=== PATIENT | female | born 1960 | race African-American/Black ===

== ENCOUNTER 2017-01-20 18:45 | Inpatient (IN) | payer MEDICARE, MEDICAID ==
[~2017-01-20] VITALS: Ht 157.5 cm; Wt 79.4 kg
[~2017-01-20 18:45] MED LIST: ALLO100T PO; CINA60TA PO; CITA20TA3 PO; CLO01T PO; CLON1TAB3 PO; DIPH25CA66 PO; DOCU-147 PO; GABA300C PO; INSUINJ37; METO5TAB56 PO; METOPROLOL PO; NIFE60TA59 PO; NOR10T PO; PHEN100C70 PO; PROM25TA5; Pantoprazole Sodium Sesquihydr PO; SEVE800T8; SIMV-13 PO; TRAZ100T2 PO
[2017-01-20 20:14] LABS: Basophils # (auto) 0 uL; Basophils % (auto) 0.1 % (0.0-2.0); CONDITION Y; Eosinophils # (auto) 0 uL; Eosinophils % (auto) 0.3 % (0.0-7.0); Hematocrit 40.8 % (36.0-46.0); Hemoglobin 13.7 g/dL (12.2-16.2); Lymphocytes # (auto) 0.8 uL; Lymphocytes % (auto) 9.2 % (10.0-50.0); Mean Corpuscular Hemoglobin 31.2 pg (28.0-32.0); Mean Corpuscular Hgb Conc. 33.7 g/dL (32.0-36.0); Mean Corpuscular Volume 92.7 fL (80.0-100.0); Mean Platelet Volume 8.1 fL (7.4-10.4); Monocytes # (auto) 0.6 uL; Monocytes % (auto) 6.1 % (0.0-12.0); Neutrophils # (auto) 7.7 uL; Neutrophils % (auto) 84.3 % (37.0-80.0); Platelet Count (auto) 356 10^3/uL (140-450); Red Cell Distribution Width 15.1 % (11.6-16.0); White Blood Cell 9.1 10^3/uL (4.4-10.8)
[2017-01-20] MEDS ORDERED: PROMETHAZINE HCL 25 MG/ML 1ML IV ONE (20:15)
[2017-01-20] MEDS ORDERED: MORPHINE SULF INJ 2 MG/ML SYRINGE 1ML IV ONE (20:15)
[2017-01-20 20:29] LABS: INR 1.04 (0.9-1.15); Partial Thromboplastin Time 26.9 sec (22.64-33.71); Prothrombin Time 11.3 sec (9.37-12.3)
[2017-01-20 20:44] LABS: Albumin 3.6 g/dL (3.4-5.0); Magnesium 2.4 mg/dL (1.6-2.6); Potassium 3.9 mmol/L (3.5-5.1)
[2017-01-20 20:45] LABS: Temperature: 21.8 C (20.0-25.0)
[2017-01-20 20:51] LABS: Bilirubin, Total 0.5 mg/dL (0.2-1.0)
[2017-01-20] MEDS ORDERED: NITROGLYCERIN 0.4 MG SL TAB SL PRN (21:30)
[2017-01-20] MEDS ORDERED: ATORVASTATIN 20 MG TAB PO SCH (22:00)
[2017-01-20] MEDS ORDERED: KETOROLAC TROMETH 30 MG/ML 1ML VIAL IM ONE (22:15)
[2017-01-20] MEDS ORDERED: LORazepam 0.5 MG TAB PO PRN (22:30)
[2017-01-20] MEDS ORDERED: NIFEdipine ER 30 MG TAB PO ONE (22:30)
[2017-01-20] MEDS ORDERED: ACETAMINOPHEN 500 MG TAB PO PRN (22:30)
[2017-01-20] MEDS: MORPHINE SULF INJ 2 MG/ML SYRINGE 1ML IV PRN (22:38)
[2017-01-20] MEDS ORDERED: DEXTROSE (50%) 50ML SYRG IV PRN (23:00)
[2017-01-20 23:35] VITALS: BP 183/95
[2017-01-20 23:43] VITALS: BP 183/95
[2017-01-21] MEDS ORDERED: NIFEdipine ER 30 MG TAB PO ONE (00:12)
[2017-01-21] MEDS: PROMETHAZINE HCL 25 MG/ML 1ML IV PRN ×4 (00:21→19:52)
[2017-01-21] MEDS: MORPHINE SULF INJ 2 MG/ML SYRINGE 1ML IV PRN ×3 (00:23→19:51)
[2017-01-21] MEDS ORDERED: PROMETHAZINE HCL 25 MG/ML 1ML IV ONE (03:00)
[2017-01-21] MEDS ORDERED: METOPROLOL TARTRATE 1MG/1ML-5ML VIAL IV ONE (04:45)
[2017-01-21 05:00] VITALS: BP 200/110
[2017-01-21 05:08] LABS: Basophils # (auto) 0 uL; Basophils % (auto) 0.6 % (0.0-2.0); CONDITION Y; Eosinophils # (auto) 0.2 uL; Eosinophils % (auto) 3.6 % (0.0-7.0); Hematocrit 36.7 % (36.0-46.0); Hemoglobin 12.4 g/dL (12.2-16.2); Lymphocytes # (auto) 1.4 uL; Lymphocytes % (auto) 20.2 % (10.0-50.0); Mean Corpuscular Hemoglobin 31.5 pg (28.0-32.0); Mean Corpuscular Hgb Conc. 33.7 g/dL (32.0-36.0); Mean Corpuscular Volume 93.3 fL (80.0-100.0); Mean Platelet Volume 8.2 fL (7.4-10.4); Monocytes # (auto) 0.5 uL; Monocytes % (auto) 7.2 % (0.0-12.0); Neutrophils # (auto) 4.6 uL; Neutrophils % (auto) 68.4 % (37.0-80.0); Platelet Count (auto) 326 10^3/uL (140-450); Red Cell Distribution Width 14.9 % (11.6-16.0); White Blood Cell 6.7 10^3/uL (4.4-10.8)
[2017-01-21 05:27] LABS: Calcium 8.4 mg/dL (8.5-10.1)
[2017-01-21 05:32] LABS: BUN/Creatinine Ratio 5.5
[2017-01-21] MEDS: InsuLIN REG 1unit/0.01ml Soln (100units/ml) SC SCH ×4 (06:37→21:39)
[2017-01-21] MEDS: ACCU-CHEK COMFORT CURVE STRIP VI SCH ×4 (06:37→21:39)
[2017-01-21] MEDS: SEVELAMER 800 MG TAB PO SCH ×3 (07:43→17:33)
[2017-01-21 09:00] VITALS: BP 192/120
[2017-01-21] MEDS: clonazePAM 0.5 MG TAB PO SCH ×2 (09:36→21:39)
[2017-01-21] MEDS: DOCUSATE SOD 100 MG CAP PO SCH ×2 (09:36→21:36)
[2017-01-21] MEDS: ASPirin 81 mg TAB PO SCH (09:36)
[2017-01-21] MEDS: cloNIDine HCL 0.1 MG TAB PO SCH ×2 (09:37→21:37)
[2017-01-21] MEDS: CITALOPRAM HYDROBR 20 MG TAB PO SCH (09:37)
[2017-01-21] MEDS: METOPROLOL TARTRATE 25 MG TAB PO SCH ×2 (09:38→21:38)
[2017-01-21] MEDS: ALLOPURINOL 100 MG TAB PO SCH ×2 (09:38→21:38)
[2017-01-21] MEDS: PANTOPRAZOLE 40 MG TAB PO SCH (09:38)
[2017-01-21 13:00] VITALS: BP 146/79
[2017-01-21 16:50] VITALS: BP_SYST 144; BP_SYST 153; BP_DIAS 82; BP_DIAS 91
[2017-01-21] MEDS: LACTULOSE 20Gm/30ML SOLN PO PRN (19:52)
[2017-01-21 20:00] VITALS: BP 185/101
[2017-01-21] MEDS: GABAPENTIN 300 MG CAP PO SCH (21:36)
[2017-01-21] MEDS: PHENYTOIN SODIUM 100 MG CAP PO SCH (21:36)
[2017-01-21] MEDS: ATORVASTATIN 20 MG TAB PO SCH (21:39)
[2017-01-21 22:00] VITALS: BP 185/101
[2017-01-22 05:00] VITALS: BP 151/93
[2017-01-22] MEDS: InsuLIN REG 1unit/0.01ml Soln (100units/ml) SC SCH ×4 (06:39→21:49)
[2017-01-22] MEDS: PROMETHAZINE HCL 25 MG/ML 1ML IV PRN (06:39)
[2017-01-22] MEDS: MORPHINE SULF INJ 2 MG/ML SYRINGE 1ML IV PRN ×3 (06:39→21:49)
[2017-01-22] MEDS: ACCU-CHEK COMFORT CURVE STRIP VI SCH ×4 (06:40→21:49)
[2017-01-22] MEDS: SEVELAMER 800 MG TAB PO SCH ×3 (08:12→17:54)
[2017-01-22 09:00] VITALS: BP 147/94
[2017-01-22] MEDS: DOCUSATE SOD 100 MG CAP PO SCH ×2 (10:00→21:29)
[2017-01-22] MEDS: cloNIDine HCL 0.1 MG TAB PO SCH ×2 (10:09→21:34)
[2017-01-22] MEDS: LACTULOSE 20Gm/30ML SOLN PO PRN (10:09)
[2017-01-22] MEDS: PANTOPRAZOLE 40 MG TAB PO SCH ×2 (10:09→21:30)
[2017-01-22] MEDS: ALLOPURINOL 100 MG TAB PO SCH ×2 (10:10→21:33)
[2017-01-22] MEDS: ASPirin 81 mg TAB PO SCH (10:10)
[2017-01-22] MEDS: CITALOPRAM HYDROBR 20 MG TAB PO SCH (10:10)
[2017-01-22] MEDS: METOPROLOL TARTRATE 25 MG TAB PO SCH ×2 (10:10→21:33)
[2017-01-22] MEDS: clonazePAM 0.5 MG TAB PO SCH ×2 (10:11→21:29)
[2017-01-22 13:00] VITALS: BP 149/72
[2017-01-22 17:02] VITALS: BP 160/92
[2017-01-22] MEDS: GABAPENTIN 300 MG CAP PO SCH (21:29)
[2017-01-22] MEDS: PHENYTOIN SODIUM 100 MG CAP PO SCH (21:32)
[2017-01-22] MEDS: ATORVASTATIN 20 MG TAB PO SCH (21:32)
[2017-01-22 22:00] VITALS: BP 140/87
[2017-01-23 05:00] VITALS: BP 157/77
[2017-01-23] MEDS: ACCU-CHEK COMFORT CURVE STRIP VI SCH ×4 (06:09→22:16)
[2017-01-23] MEDS: InsuLIN REG 1unit/0.01ml Soln (100units/ml) SC SCH ×4 (06:09→22:27)
[2017-01-23] MEDS: HYDROcodone-ACET 5/325MG TAB PO PRN ×2 (07:54→13:26)
[2017-01-23 08:00] VITALS: BP_SYST 108; BP_SYST 146; BP_DIAS 68; BP_DIAS 88
[2017-01-23] MEDS ORDERED: fentaNYL CITRATE 100 MCG/2 ML VL ONE (08:58)
[2017-01-23] MEDS ORDERED: NALOXONE HCL 0.4 MG/ML VIAL ONE (08:58)
[2017-01-23] MEDS ORDERED: FLUMAZENIL 0.1 MG/ML INJ 10ML MDV IV ONE (08:58)
[2017-01-23] MEDS ORDERED: MIDAZOLAM HCL 5 MG/ML-1ML VIAL ONE (08:58)
[2017-01-23] MEDS ORDERED: SODIUM CHLORIDE LOCK 10 ML ONE (08:58)
[2017-01-23] MEDS ORDERED: LIDOCAINE VISCOUS 2% 15ML UD ONE (08:58)
[2017-01-23] MEDS ORDERED: diphenhdrAMINE HCL 50 MG/1 ML VL ONE (08:59)
[2017-01-23] MEDS: METOPROLOL TARTRATE 25 MG TAB PO SCH ×2 (10:00→22:05)
[2017-01-23] MEDS: cloNIDine HCL 0.1 MG TAB PO SCH ×2 (10:00→22:04)
[2017-01-23] MEDS: CITALOPRAM HYDROBR 20 MG TAB PO SCH (10:00)
[2017-01-23] MEDS: SEVELAMER 800 MG TAB PO SCH ×3 (12:00→17:28)
[2017-01-23 13:22] VITALS: BP 156/80
[2017-01-23] MEDS: LACTULOSE 20Gm/30ML SOLN PO PRN (13:25)
[2017-01-23] MEDS: ASPirin 81 mg TAB PO SCH (13:27)
[2017-01-23] MEDS: ALLOPURINOL 100 MG TAB PO SCH ×2 (13:28→22:07)
[2017-01-23] MEDS: DOCUSATE SOD 100 MG CAP PO SCH ×2 (13:28→22:05)
[2017-01-23] MEDS: PANTOPRAZOLE 40 MG TAB PO SCH ×2 (13:29→22:05)
[2017-01-23] MEDS: clonazePAM 0.5 MG TAB PO SCH ×2 (15:56→22:06)
[2017-01-23 17:00] VITALS: BP 150/77
[2017-01-23] MEDS: MORPHINE SULF INJ 2 MG/ML SYRINGE 1ML IV PRN ×2 (17:28→22:16)
[2017-01-23 20:00] VITALS: BP 150/72
[2017-01-23 22:00] VITALS: BP 150/72
[2017-01-23] MEDS: ATORVASTATIN 20 MG TAB PO SCH (22:05)
[2017-01-23] MEDS: GABAPENTIN 300 MG CAP PO SCH (22:05)
[2017-01-23] MEDS: PHENYTOIN SODIUM 100 MG CAP PO SCH (22:06)
[2017-01-24 05:00] VITALS: BP 138/65
[2017-01-24 06:27] LABS: Basophils # (auto) 0 uL; Basophils % (auto) 0.5 % (0.0-2.0); CONDITION Y; DEFINITIVE SEE PRINTOUT; Eosinophils # (auto) 0.9 uL; Eosinophils % (auto) 14.7 % (0.0-7.0); Hematocrit 32.9 % (36.0-46.0); Hemoglobin 10.9 g/dL (12.2-16.2); Lymphocytes # (auto) 2.1 uL; Lymphocytes % (auto) 35.4 % (10.0-50.0); Mean Corpuscular Hemoglobin 31.1 pg (28.0-32.0); Mean Corpuscular Volume 94.1 fL (80.0-100.0); Mean Platelet Volume 8.5 fL (7.4-10.4); Monocytes # (auto) 0.5 uL; Monocytes % (auto) 8.2 % (0.0-12.0); Neutrophils # (auto) 2.4 uL; Neutrophils % (auto) 41.2 % (37.0-80.0); Platelet Count (auto) 308 10^3/uL (140-450); Red Cell Distribution Width 15.1 % (11.6-16.0); White Blood Cell 5.9 10^3/uL (4.4-10.8)
[2017-01-24] MEDS: InsuLIN REG 1unit/0.01ml Soln (100units/ml) SC SCH ×4 (06:29→21:40)
[2017-01-24] MEDS: ACCU-CHEK COMFORT CURVE STRIP VI SCH ×4 (06:29→21:40)
[2017-01-24 06:47] LABS: BUN/Creatinine Ratio 7.6; Calcium 7.9 mg/dL (8.5-10.1); Potassium 5.2 mmol/L (3.5-5.1)
[2017-01-24 08:00] VITALS: BP 143/72
[2017-01-24 09:31] VITALS: BP 136/78
[2017-01-24] MEDS: clonazePAM 0.5 MG TAB PO SCH (10:00)
[2017-01-24] MEDS: CITALOPRAM HYDROBR 20 MG TAB PO SCH (10:00)
[2017-01-24] MEDS: METOPROLOL TARTRATE 25 MG TAB PO SCH ×2 (10:00→21:39)
[2017-01-24] MEDS ORDERED: SODIUM CHL 0.9% 1000 ML BAG XX ONE (10:15)
[2017-01-24] MEDS: SEVELAMER 800 MG TAB PO SCH ×3 (10:37→19:29)
[2017-01-24] MEDS: DOCUSATE SOD 100 MG CAP PO SCH ×2 (10:38→21:38)
[2017-01-24] MEDS: PANTOPRAZOLE 40 MG TAB PO SCH ×2 (10:38→21:39)
[2017-01-24] MEDS: ASPirin 81 mg TAB PO SCH (10:38)
[2017-01-24] MEDS: ALLOPURINOL 100 MG TAB PO SCH ×2 (10:40→21:39)
[2017-01-24 14:26] VITALS: BP 151/70
[2017-01-24] MEDS: HYDROcodone-ACET 5/325MG TAB PO PRN (16:40)
[2017-01-24 17:30] VITALS: BP 130/87
[2017-01-24] MEDS: LACTULOSE 20Gm/30ML SOLN PO PRN (17:40)
[2017-01-24 21:30] VITALS: BP 146/71
[2017-01-24] MEDS: PHENYTOIN SODIUM 100 MG CAP PO SCH (21:38)
[2017-01-24] MEDS: ATORVASTATIN 20 MG TAB PO SCH (21:38)
[2017-01-24] MEDS: GABAPENTIN 300 MG CAP PO SCH (21:39)
[2017-01-25] MEDS: HYDROcodone-ACET 5/325MG TAB PO PRN (01:00)
[2017-01-25 05:30] VITALS: BP 168/91
[2017-01-25] MEDS: ACCU-CHEK COMFORT CURVE STRIP VI SCH ×4 (06:21→22:15)
[2017-01-25] MEDS: cloNIDine HCL 0.1 MG TAB PO PRN (06:21)
[2017-01-25] MEDS: InsuLIN REG 1unit/0.01ml Soln (100units/ml) SC SCH ×4 (06:21→22:15)
[2017-01-25 06:39] LABS: Basophils # (auto) 0 uL; Basophils % (auto) 0.5 % (0.0-2.0); CONDITION Y; DEFINITIVE SEE PRINTOUT; Eosinophils # (auto) 0.9 uL; Eosinophils % (auto) 13.8 % (0.0-7.0); Hemoglobin 12.1 g/dL (12.2-16.2); Lymphocytes # (auto) 1.9 uL; Lymphocytes % (auto) 29.2 % (10.0-50.0); Mean Corpuscular Hemoglobin 31.1 pg (28.0-32.0); Mean Corpuscular Hgb Conc. 32.6 g/dL (32.0-36.0); Mean Corpuscular Volume 95.4 fL (80.0-100.0); Mean Platelet Volume 8.5 fL (7.4-10.4); Monocytes # (auto) 0.6 uL; Monocytes % (auto) 8.7 % (0.0-12.0); Neutrophils # (auto) 3.1 uL; Neutrophils % (auto) 47.8 % (37.0-80.0); Platelet Count (auto) 302 10^3/uL (140-450); Red Cell Distribution Width 14.9 % (11.6-16.0); White Blood Cell 6.5 10^3/uL (4.4-10.8)
[2017-01-25 07:01] LABS: Calcium 8.8 mg/dL (8.5-10.1)
[2017-01-25 07:04] LABS: BUN/Creatinine Ratio 6.7
[2017-01-25] MEDS: SEVELAMER 800 MG TAB PO SCH ×3 (08:56→18:20)
[2017-01-25] MEDS: METOPROLOL TARTRATE 25 MG TAB PO SCH ×2 (08:56→22:14)
[2017-01-25] MEDS: DOCUSATE SOD 100 MG CAP PO SCH ×2 (08:57→22:14)
[2017-01-25] MEDS: ASPirin 81 mg TAB PO SCH (08:57)
[2017-01-25] MEDS: PANTOPRAZOLE 40 MG TAB PO SCH ×2 (08:57→22:14)
[2017-01-25] MEDS: ALLOPURINOL 100 MG TAB PO SCH ×2 (08:57→22:15)
[2017-01-25] MEDS: CITALOPRAM HYDROBR 20 MG TAB PO SCH (08:57)
[2017-01-25 09:00] VITALS: BP 143/84
[2017-01-25 13:00] VITALS: BP 143/66
[2017-01-25] MEDS ORDERED: SODIUM CHL 0.9% 1000 ML BAG XX ONE (14:00)
[2017-01-25 16:39] VITALS: BP 141/64
[2017-01-25 22:00] VITALS: BP_SYST 169; BP_SYST 185; BP_DIAS 92; BP_DIAS 97
[2017-01-25] MEDS: PHENYTOIN SODIUM 100 MG CAP PO SCH (22:14)
[2017-01-25] MEDS: GABAPENTIN 300 MG CAP PO SCH (22:14)
[2017-01-25] MEDS: ATORVASTATIN 20 MG TAB PO SCH (22:14)
[2017-01-26 05:00] VITALS: BP 176/105
[2017-01-26] MEDS: cloNIDine HCL 0.1 MG TAB PO PRN ×2 (05:11→22:11)
[2017-01-26] MEDS: InsuLIN REG 1unit/0.01ml Soln (100units/ml) SC SCH ×4 (06:05→22:00)
[2017-01-26] MEDS: ACCU-CHEK COMFORT CURVE STRIP VI SCH ×4 (06:05→22:11)
[2017-01-26 06:38] LABS: CONDITION Y; DEFINITIVE SEE PRINTOUT; Hemoglobin 12.7 g/dL (12.2-16.2); Mean Corpuscular Hemoglobin 31.2 pg (28.0-32.0); Mean Corpuscular Hgb Conc. 33.4 g/dL (32.0-36.0); Mean Corpuscular Volume 93.5 fL (80.0-100.0); Mean Platelet Volume 8.4 fL (7.4-10.4); Platelet Count (auto) 345 10^3/uL (140-450); Red Cell Distribution Width 14.4 % (11.6-16.0)
[2017-01-26 07:25] LABS: BUN/Creatinine Ratio 7.3; Calcium 8.8 mg/dL (8.5-10.1)
[2017-01-26 07:26] LABS: Metamyelocytes % 0; Myelocytes % 0; Promyelocytes % 0; Reactive Lymphocytes 0
[2017-01-26 07:39] LABS: Potassium 5.7 mmol/L (3.5-5.1)
[2017-01-26] MEDS: SEVELAMER 800 MG TAB PO SCH ×3 (08:40→18:53)
[2017-01-26 09:00] VITALS: BP 150/68
[2017-01-26] MEDS ORDERED: SODIUM CHL 0.9% 1000 ML BAG XX ONE (09:00)
[2017-01-26] MEDS ORDERED: diphenhdrAMINE HCL 50 MG/1 ML VL IV ONE (09:15)
[2017-01-26] MEDS: CITALOPRAM HYDROBR 20 MG TAB PO SCH (09:58)
[2017-01-26] MEDS: ASPirin 81 mg TAB PO SCH (09:58)
[2017-01-26] MEDS: DOCUSATE SOD 100 MG CAP PO SCH ×2 (09:58→22:10)
[2017-01-26] MEDS: METOPROLOL TARTRATE 25 MG TAB PO SCH ×2 (09:59→22:10)
[2017-01-26] MEDS: ALLOPURINOL 100 MG TAB PO SCH ×2 (10:00→22:11)
[2017-01-26] MEDS: PANTOPRAZOLE 40 MG TAB PO SCH ×2 (10:00→22:10)
[2017-01-26 12:06] LABS: Platelet Estimate Adequate
[2017-01-26 13:00] VITALS: BP 106/62
[2017-01-26 17:42] VITALS: BP 166/87
[2017-01-26 22:00] VITALS: BP 185/97
[2017-01-26] MEDS: ATORVASTATIN 20 MG TAB PO SCH (22:10)
[2017-01-26] MEDS: PHENYTOIN SODIUM 100 MG CAP PO SCH (22:10)
[2017-01-27 05:00] VITALS: BP 186/103
[2017-01-27] MEDS: ACCU-CHEK COMFORT CURVE STRIP VI SCH ×2 (06:40→11:30)
[2017-01-27] MEDS: InsuLIN REG 1unit/0.01ml Soln (100units/ml) SC SCH ×2 (06:40→11:30)
[2017-01-27 08:00] VITALS: BP 165/76
[2017-01-27 09:00] VITALS: BP 165/76
[2017-01-27] MEDS: PANTOPRAZOLE 40 MG TAB PO SCH (09:44)
[2017-01-27] MEDS: SEVELAMER 800 MG TAB PO SCH ×2 (09:44→12:00)
[2017-01-27] MEDS: ALLOPURINOL 100 MG TAB PO SCH (09:44)
[2017-01-27] MEDS: ASPirin 81 mg TAB PO SCH (09:44)
[2017-01-27] MEDS: DOCUSATE SOD 100 MG CAP PO SCH (09:44)
[2017-01-27] MEDS: METOPROLOL TARTRATE 25 MG TAB PO SCH (09:45)
[2017-01-27 11:15] VITALS: BP 165/76
== END 2017-01-27 14:00 | disposition home or self-care (01) | DRG 280 ==
LOC: EDBD 18:45 → ER 18:45 → TELE 18:46 → TELE-EAST 23:30
PROVIDERS: ADMIT Nurse Practitioner Family; ATTEND Family Medicine
PROC: 0DB68ZX Excision of Stomach, Via Natural or Artificial Opening Endoscopic, Diagnostic (ICD-10-PCS; principal; 2017-01-23 11:15)
PROC: 5A1D60Z (ICD-10-PCS; 2017-01-24)
DX: I21.4 Non-ST elevation (NSTEMI) myocardial infarction (principal); E43 Unspecified severe protein-calorie malnutrition; I50.43 Acute on chronic combined systolic (congestive) and diastolic (congestive) heart failure; G93.41 Metabolic encephalopathy; K65.9 Peritonitis, unspecified; N18.6 End stage renal disease; E11.22 Type 2 diabetes mellitus with diabetic chronic kidney disease; I13.2 Hypertensive heart and chronic kidney disease with heart failure and with stage 5 chronic kidney disease, or end stage renal disease; K29.70 Gastritis, unspecified, without bleeding; K29.80 Duodenitis without bleeding; K20.9 Esophagitis, unspecified; D64.9 Anemia, unspecified; D86.9 Sarcoidosis, unspecified; E11.65 Type 2 diabetes mellitus with hyperglycemia; E66.01 Morbid (severe) obesity due to excess calories; E78.5 Hyperlipidemia, unspecified; F17.210 Nicotine dependence, cigarettes, uncomplicated; F41.9 Anxiety disorder, unspecified; G40.409 Other generalized epilepsy and epileptic syndromes, not intractable, without status epilepticus; K44.9 Diaphragmatic hernia without obstruction or gangrene; I25.10 Atherosclerotic heart disease of native coronary artery without angina pectoris; G47.10 Hypersomnia, unspecified; T40.695A Adverse effect of other narcotics, initial encounter; M10.9 Gout, unspecified; M77.12 Lateral epicondylitis, left elbow; Z79.4 Long term (current) use of insulin; Z79.82 Long term (current) use of aspirin; Z68.32 Body mass index [BMI] 32.0-32.9, adult; Z79.899 Other long term (current) drug therapy; Z82.49 Family history of ischemic heart disease and other diseases of the circulatory system; Z83.3 Family history of diabetes mellitus; Z86.73 Personal history of transient ischemic attack (TIA), and cerebral infarction without residual deficits; Z99.2 Dependence on renal dialysis; Z88.8 Allergy status to other drugs, medicaments and biological substances; Z90.49 Acquired absence of other specified parts of digestive tract; Z80.8 Family history of malignant neoplasm of other organs or systems; Z71.89 Other specified counseling; Y92.89 Other specified places as the place of occurrence of the external cause
CPT/HCPCS: 36415; 43239; 70450; 71010; 80048; 80053; 80061; 80185; 82550; 82947; 82962; 83036; 83735; 83880; 84132; 84443; 84484; 85007; 85025; 85027; 85610; 85652; 85730; 86141; 87081; 90935; 93005; 94761; 95819; 96374; 96375; J1815; J2250

== ENCOUNTER 2017-12-20 21:01 | Inpatient (IN) | payer MEDICARE, MEDICAID ==
[~2017-12-20] VITALS: Ht 160 cm; Wt 61.6 kg
[~2017-12-20 21:01] MED LIST changes: -CLON1TAB3 PO; +CLON1TAB4 PO
[2017-12-20 22:10] LABS: Albumin 3.3 g/dL (3.4-5.0); BUN/Creatinine Ratio 3.9; Calcium 7.8 mg/dL (8.5-10.1); Potassium 3.3 mmol/L (3.5-5.1)
[2017-12-20] MEDS ORDERED: PROMETHAZINE HCL 25 MG/ML 1ML IV ONE (22:15)
[2017-12-20 22:25] LABS: Bilirubin, Total 0.7 mg/dL (0.2-1.0); Total Protein 8.4 g/dL (6.4-8.2)
[2017-12-20 22:28] LABS: Basophils # (auto) 0 uL; Basophils % (auto) 0.9 % (0.0-2.0); Eosinophils # (auto) 0.1 uL; Eosinophils % (auto) 1.7 % (0.0-7.0); Hematocrit 42.1 % (36.0-46.0); Hemoglobin 14.6 g/dL (12.2-16.2); Lymphocytes # (auto) 1.2 uL; Lymphocytes % (auto) 28.5 % (10.0-50.0); Mean Corpuscular Hemoglobin 33.4 pg (28.0-32.0); Mean Corpuscular Hgb Conc. 34.7 g/dL (32.0-36.0); Mean Corpuscular Volume 96.2 fL (80.0-100.0); Monocytes # (auto) 0.5 uL; Monocytes % (auto) 12.3 % (0.0-12.0); Neutrophils # (auto) 2.3 uL; Neutrophils % (auto) 56.6 % (37.0-80.0); Nucleated Red Blood Cells % 0.1 %; Platelet Count (auto) 176 10^3/uL (140-450); Red Blood Cells 4.37 10^6/uL (4.0-5.20); White Blood Cell 4.1 10^3/uL (4.4-10.8)
[2017-12-20 22:35] LABS: Lactic Acid w/Reflex 2.9 mmol/L (0.4-2.0)
[2017-12-20 22:58] LABS: INR 1.08 (0.9-1.15); Partial Thromboplastin Time 26.3 sec (23.78-33.04); Prothrombin Time 11.5 sec (9.27-12.13)
[2017-12-20 22:59] LABS: Magnesium 2.2 mg/dL (1.6-2.6)
[2017-12-20] MEDS ORDERED: SODIUM CHLORIDE 0.9% 1,000 ML IV ONE (23:30)
[2017-12-21] MEDS ORDERED: METOCLOPRAMIDE HCL 5MG/ml INJ 2ml VIAL IV ONE
[2017-12-21] MEDS ORDERED: PHENYTOIN SODIUM 100 MG CAP PO ONE (02:00)
[2017-12-21] MEDS ORDERED: POTASSIUM CHL 20 Meq TABLET PO ONE (02:00)
[2017-12-21] MEDS ORDERED: ONDANSETRON HCL 4 MG/2 ML VIAL IV PRN (02:00)
[2017-12-21] MEDS ORDERED: TEMAZEPAM 15 MG CAP PO PRN (02:00)
[2017-12-21] MEDS ORDERED: METOPROLOL TARTRATE 50 MG TAB PO ONE (02:00)
[2017-12-21] MEDS ORDERED: DEXTROSE (50%) 50ML SYRG IV PRN (02:00)
[2017-12-21] MEDS ORDERED: cloNIDine HCL 0.1 MG TAB PO ONE (02:00)
[2017-12-21] MEDS: PROMETHAZINE HCL 25 MG/ML 1ML IV PRN (02:26)
[2017-12-21] MEDS ORDERED: SODIUM CHLORIDE 0.9% 1,000 ML IV SCH (02:45)
[2017-12-21] MEDS ORDERED: PANTOPRAZOLE 40 MG/10 ML VIAL IV ONE (02:45)
[2017-12-21] MEDS: ACCU-CHEK COMFORT CURVE STRIP VI SCH ×3 (06:09→17:49)
[2017-12-21] MEDS: InsuLIN REG 1unit/0.01ml Soln (100units/ml) SC SCH ×3 (06:21→17:49)
[2017-12-21] MEDS: SEVELAMER 800 MG TAB PO SCH ×3 (08:21→17:48)
[2017-12-21] MEDS: GABAPENTIN 300 MG CAP PO SCH (10:00)
[2017-12-21] MEDS: cloNIDine HCL 0.1 MG TAB PO SCH ×2 (10:00→21:49)
[2017-12-21] MEDS: METOPROLOL TARTRATE 50 MG TAB PO SCH ×2 (10:00→21:49)
[2017-12-21] MEDS: NIFEdipine ER 30 MG TAB PO SCH (10:00)
[2017-12-21] MEDS ORDERED: SODIUM CHLORIDE 0.9% 1,000 ML IV ONE (10:15)
[2017-12-21] MEDS: CITALOPRAM HYDROBR 20 MG TAB PO SCH (10:17)
[2017-12-21] MEDS: PANTOPRAZOLE 40 MG TAB PO SCH (10:17)
[2017-12-21 14:00] VITALS: BP 115/59
[2017-12-21 14:30] VITALS: BP 115/59
[2017-12-21] MEDS ORDERED: LOPERAMIDE HCL 2 MG CAP PO ONE (15:15)
[2017-12-21] MEDS ORDERED: LOPERAMIDE HCL 2 MG CAP PO PRN (15:15)
[2017-12-21] MEDS: ACETAMINOPHEN 325 MG TAB PO PRN ×2 (15:17→21:50)
[2017-12-21 16:35] LABS: Anion Gap 11 (5-15); Blood Urea Nitrogen 27 mg/dL (7-18); Carbon Dioxide 30 mmol/L (21-32); Chloride 96 mmol/L (98-107); GFR African American 8 mL/min; GFR Non-African American 7 mL/min; Glucose 119 mg/dL (74-106); Potassium 4.4 mmol/L (3.5-5.1); Sodium 137 mmol/L (136-145)
[2017-12-21 16:36] LABS: Calcium 6.8 mg/dL (8.5-10.1)
[2017-12-21] MEDS: PHENYTOIN SODIUM 100 MG CAP PO SCH (21:49)
[2017-12-21] MEDS: PRAVASTATIN SODIUM 20 MG TAB PO SCH (21:50)
[2017-12-21 22:00] VITALS: BP 141/74
[2017-12-21] MEDS ORDERED: PATIENTS OWN MEDICATION (simvastatin 40 MG) PO SCH (22:00)
[2017-12-22] VITALS (7 sets, daily range): BP systolic 91–142; BP diastolic 51–77
[2017-12-22] MEDS: InsuLIN REG 1unit/0.01ml Soln (100units/ml) SC SCH ×4 (00:30→18:09)
[2017-12-22] MEDS: ACCU-CHEK COMFORT CURVE STRIP VI SCH ×4 (00:30→18:08)
[2017-12-22] MEDS: ACETAMINOPHEN 325 MG TAB PO PRN ×2 (03:54→21:39)
[2017-12-22 06:16] LABS: Basophils # (auto) 0 uL; Basophils % (auto) 0.8 % (0.0-2.0); Eosinophils # (auto) 0.2 uL; Eosinophils % (auto) 4.9 % (0.0-7.0); Hematocrit 39.4 % (36.0-46.0); Hemoglobin 13.6 g/dL (12.2-16.2); Lymphocytes # (auto) 1.7 uL; Lymphocytes % (auto) 36.8 % (10.0-50.0); Mean Corpuscular Hemoglobin 33.3 pg (28.0-32.0); Mean Corpuscular Hgb Conc. 34.4 g/dL (32.0-36.0); Mean Corpuscular Volume 96.9 fL (80.0-100.0); Monocytes # (auto) 0.5 uL; Monocytes % (auto) 12.1 % (0.0-12.0); Neutrophils % (auto) 45.4 % (37.0-80.0); Nucleated Red Blood Cells % 0.1 %; Platelet Count (auto) 188 10^3/uL (140-450); Red Blood Cells 4.06 10^6/uL (4.0-5.20); White Blood Cell 4.5 10^3/uL (4.4-10.8)
[2017-12-22 06:47] LABS: Albumin 2.9 g/dL (3.4-5.0); BUN/Creatinine Ratio 4.2; Calcium 6.8 mg/dL (8.5-10.1)
[2017-12-22 07:01] LABS: Bilirubin, Total 0.8 mg/dL (0.2-1.0); Total Protein 7.4 g/dL (6.4-8.2)
[2017-12-22] MEDS: SEVELAMER 800 MG TAB PO SCH ×3 (08:37→18:07)
[2017-12-22] MEDS: GABAPENTIN 300 MG CAP PO SCH (09:51)
[2017-12-22] MEDS: PANTOPRAZOLE 40 MG TAB PO SCH (09:51)
[2017-12-22] MEDS: CITALOPRAM HYDROBR 20 MG TAB PO SCH (09:51)
[2017-12-22] MEDS: cloNIDine HCL 0.1 MG TAB PO SCH ×2 (10:00→21:38)
[2017-12-22] MEDS: METOPROLOL TARTRATE 50 MG TAB PO SCH ×2 (10:00→21:39)
[2017-12-22] MEDS: NIFEdipine ER 30 MG TAB PO SCH (10:00)
[2017-12-22] MEDS ORDERED: SODIUM CHL 0.9% 1000 ML BAG XX ONE (10:15)
[2017-12-22] MEDS: PHENYTOIN SODIUM 100 MG CAP PO SCH (21:38)
[2017-12-22] MEDS: PRAVASTATIN SODIUM 20 MG TAB PO SCH (21:39)
[2017-12-22] MEDS: PROMETHAZINE HCL 25 MG/ML 1ML IV PRN (22:04)
[2017-12-23] MEDS: ACCU-CHEK COMFORT CURVE STRIP VI SCH ×4 (00:11→18:33)
[2017-12-23] MEDS: InsuLIN REG 1unit/0.01ml Soln (100units/ml) SC SCH ×4 (00:12→18:33)
[2017-12-23 05:34] VITALS: BP 108/50
[2017-12-23 06:34] LABS: BUN/Creatinine Ratio 4.7; Calcium 6.1 mg/dL (8.5-10.1); Potassium 4.5 mmol/L (3.5-5.1)
[2017-12-23 08:25] VITALS: BP 118/59
[2017-12-23] MEDS: SEVELAMER 800 MG TAB PO SCH ×3 (09:22→18:32)
[2017-12-23] MEDS: NIFEdipine ER 30 MG TAB PO SCH (10:00)
[2017-12-23] MEDS: METOPROLOL TARTRATE 50 MG TAB PO SCH ×2 (10:00→21:55)
[2017-12-23] MEDS: GABAPENTIN 300 MG CAP PO SCH (10:09)
[2017-12-23] MEDS: CITALOPRAM HYDROBR 20 MG TAB PO SCH (10:09)
[2017-12-23] MEDS: PANTOPRAZOLE 40 MG TAB PO SCH (10:09)
[2017-12-23] MEDS: cloNIDine HCL 0.1 MG TAB PO SCH ×2 (10:10→21:55)
[2017-12-23 12:31] VITALS: BP 86/52
[2017-12-23] MEDS: HYDROcodone-ACET 5/325MG TAB PO PRN ×2 (15:18→20:05)
[2017-12-23 17:44] VITALS: BP 78/45
[2017-12-23 18:48] VITALS: BP 98/48
[2017-12-23] MEDS: PHENYTOIN SODIUM 100 MG CAP PO SCH (21:55)
[2017-12-23] MEDS: PRAVASTATIN SODIUM 20 MG TAB PO SCH (21:56)
[2017-12-23 22:30] VITALS: BP 101/70
[2017-12-24] MEDS: ACCU-CHEK COMFORT CURVE STRIP VI SCH ×2 (00:17→06:08)
[2017-12-24] MEDS: HYDROcodone-ACET 5/325MG TAB PO PRN (00:18)
[2017-12-24] MEDS: InsuLIN REG 1unit/0.01ml Soln (100units/ml) SC SCH ×2 (00:18→06:08)
[2017-12-24 05:21] VITALS: BP 108/54
[2017-12-24] MEDS: SEVELAMER 800 MG TAB PO SCH (08:06)
[2017-12-24 09:00] VITALS: BP 120/61
== END 2017-12-24 08:45 | disposition home or self-care (01) | DRG 291 ==
LOC: EDBD 21:01 → ER 21:06 → OVERFLOW 21:07 → CENTRAL 12-21 14:17
PROVIDERS: ADMIT Nurse Practitioner; ATTEND Family Medicine
DX: I13.2 Hypertensive heart and chronic kidney disease with heart failure and with stage 5 chronic kidney disease, or end stage renal disease (principal); N18.6 End stage renal disease; E46 Unspecified protein-calorie malnutrition; K52.9 Noninfective gastroenteritis and colitis, unspecified; E78.00 Pure hypercholesterolemia, unspecified; D86.9 Sarcoidosis, unspecified; F32.9 Major depressive disorder, single episode, unspecified; E86.0 Dehydration; Z99.2 Dependence on renal dialysis; E66.01 Morbid (severe) obesity due to excess calories; E11.22 Type 2 diabetes mellitus with diabetic chronic kidney disease; I25.10 Atherosclerotic heart disease of native coronary artery without angina pectoris; E87.6 Hypokalemia; F17.210 Nicotine dependence, cigarettes, uncomplicated; M10.9 Gout, unspecified; I50.9 Heart failure, unspecified; K29.70 Gastritis, unspecified, without bleeding; N27.1 Small kidney, bilateral; Z82.49 Family history of ischemic heart disease and other diseases of the circulatory system; Z83.3 Family history of diabetes mellitus; Z86.73 Personal history of transient ischemic attack (TIA), and cerebral infarction without residual deficits; Z90.49 Acquired absence of other specified parts of digestive tract; Z88.8 Allergy status to other drugs, medicaments and biological substances; Z68.24 Body mass index [BMI] 24.0-24.9, adult
CPT/HCPCS: 36415; 71045; 74176; 80048; 80053; 80320; 82150; 82962; 83605; 83690; 83735; 83880; 84484; 85025; 85610; 85730; 87045; 87081; 87899; 93005; 94761; 96361; 96374; 96375; A6257; C9113; J1815